=== PATIENT | male | born 2000 | race Caucasian/White ===

== ENCOUNTER → 2018-07-16 09:44 | Outpatient (CLI) | payer OTHER, SELFPAY ==
[2018-07-16 09:36] VITALS: BMI 27.8
--- NOTE | 2018-07-16 09:49 | RAD_ITS ---
STUDY: X-RAY - RIGHT FOOT CLINICAL: Male, 17 years old. Burn. TECHNIQUE: 3 view(s) of the foot. COMPARISON: None. FINDINGS: Normal talus, calcaneus, and tarsal bones. Normal visualized subtalar, talonavicular, calcaneocuboid, tarsal and tarsometatarsal articulations. Normal metatarsi. Normal metatarsophalangeal joint of the great toe. Normal tibial and fibular sesamoid bones. Normal interphalangeal joint of the great toe. Normal phalanges of the great toe. Normal second through fifth metatarsophalangeal joints. Normal interphalangeal joints and phalanges of the lesser toes. The soft tissue structures are unremarkable. There is no demonstrated fracture. RAD/Foot min 3 Views IMPRESSION: Normal x-ray examination of the foot. Electronically Signed: Nash Goodrich MD at 10:58 EST , Service support ,
== END ==
PROVIDERS: Referring Provider Physician Assistant Surgical; Visit Provider Physician Assistant Surgical
DX: T25.221A Burn of second degree of right foot, initial encounter (principal)
CPT/HCPCS: 73630

== ENCOUNTER 2023-05-18 04:14 | Emergency (ER) | payer SELFPAY ==
[2023-05-18 04:15] VITALS: BP 167/101; PULSE 63; RESP 14; TEMP 36.6; O2SAT 99; BMI 26.5
--- NOTE | 2023-05-18 04:25 | CT_ITS ---
EXAM: CT ABDOMEN AND PELVIS WITHOUT INTRAVENOUS CONTRAST CLINICAL INDICATION: Kidney Stone TECHNIQUE: Helically acquired images were obtained of the abdomen and pelvis without intravenous contrast. This CT exam was performed using one or more of the following dose reduction techniques: automated exposure control, adjustment of the mA and/or kV according to patient size, and/or use of iterative reconstruction technique. RADIATION DOSE: CTDIvol = 7.58 mGy, DLP = 380.63 mGy-cm COMPARISON: No relevant prior studies available. FINDINGS: LOWER THORAX: Unremarkable. Lung bases are clear. No cardiomegaly. No significant pericardial effusion. ABDOMEN: LIVER: Unremarkable. Homogeneous. GALLBLADDER AND BILE DUCTS: Unremarkable. No calcified gallstones. No gallbladder distention or wall edema. No intra- or extrahepatic biliary ductal dilation. PANCREAS: Unremarkable. No focal cystic mass. SPLEEN: Unremarkable. Normal size without focal cystic or solid mass. ADRENALS: Unremarkable. No nodules. KIDNEYS AND URETERS: There is a 6 mm stone in the left UVJ causing moderate obstructive changes. Small nonobstructing stone in the lower pole of the left kidney. STOMACH AND BOWEL: Unremarkable. No stomach or bowel distention. No focal inflammatory change. PELVIS: APPENDIX: The appendix is normal. BLADDER: Unremarkable. REPRODUCTIVE: Unremarkable as visualized. No mass. ABDOMEN and PELVIS: INTRAPERITONEAL SPACE: Unremarkable. No ascites or other fluid collection. No free air. BONES/JOINTS: Unremarkable. No suspicious lytic or blastic abnormality. SOFT TISSUES: Unremarkable. No discrete abdominal or pelvic wall hernia. VASCULATURE: Unremarkable. Abdominal aorta is non-dilated. LYMPH NODES: Unremarkable. No enlarged lymph nodes. CT/Abdomen/Pelvis without Cont IMPRESSION: There is a 6 mm stone in the left UVJ causing moderate obstructive changes. Electronically Signed: Walter Treviño MD at 5:20 EDT ,
--- NOTE | 2023-05-18 04:26 | EX.ED.DYSGE1 ---
HPI History of Present Illness Chief Complaint: Complaint Narrative Narrative: Patient presents with 4-hour history of left flank pain and burning with urination. No fevers or chills no prior kidney stones. No right-sided abdominal pain minimal left-sided abdominal pain. PFSH PFSH Medical History no medical history Home Medications oxycodone-acetaminophen 5 mg-325 mg tablet (Percocet) 1 tab PO Q6H 3 days #12 tabs 05/18/23 [Rx Last Taken Unknown] oxycodone-acetaminophen 5 mg-325 mg tablet (Percocet) 1 tab PO Q6H PRN pain 3 days #12 tabs 05/18/23 [Rx Last Taken Unknown] Allergy/AdvReac Type Severity Reaction Status Date / Time No Known Allergies Allergy Verified 05/18/23 04:19 Surgical History no surgical history Social History (Updated 07/24/20 @ 17:24 by DANA Castanon) Smoking Status: Current every day smoker tobacco type: e-cigarettes ROS ROS ED ROS Narrative Past medical history: Reviewed Medications: Reviewed Social history: Noncontributory Review of systems: All systems negative except as indicated General: No fever Eyes: No visual changes ENT: No upper airway congestion, normal voice Neck: No neck pain Cardiovascular: No chest pain Respiratory: No shortness of breath or cough Gastrointestinal: CVA tenderness and some left lower abdominal pain Genitourinary: Burning with urination. No penile discharge no testicular pain Musculoskeletal: Denies myalgias no difficulty with ambulation Skin: No rash EXAM Physical Exam Narrative Exam Narrative: Physical exam General: Patient appears somewhat uncomfortable Head: Normocephalic, Atraumatic Eyes: Conjunctiva not pale ENT: Moist mucous membranes Neck: Supple, Nontender, No lymphadenopathy Cardiovascular: Regular rate, Regular rhythm Respiratory: No distress, CTA bilaterally Abdomen: Soft, minimal tenderness over the left lower quadrant. : Normal external genitalia circumcised and shaved, no testicular tenderness no penile discharge Back: Nontender, Normal Inspection. Left-sided CVA tenderness Extremities: Nontender, No edema Skin: Normal color, No rash Neurological: Alert, Normal Strength, Normal Sensation Psychological: Normal affect Const Vital Signs: 05/18/23 04:15 Temperature 97.9 F Temperature Source Temporal Pulse Rate 63 Respiratory Rate 14 Blood Pressure 167/101 H Blood Pressure Mean 123 Pulse Ox 99 Oxygen Delivery Method Room Air MDM MDM MDM Narrative Medical decision making narrative: Patient is given analgesia, improved. He is found to have a 6 mm distal kidney stone. This was seen by me on the CT as I interpreted it, it was confirmed by radiologist. Patient has hematuria but no infection. Because his pain is controlled and there is no infection I believe he can be discharged I do not believe he meets admission criteria. He will be referred to urology. If anything changes he is to return. I will give him analgesics in the ED. I will give him prescription for home. Lab Data Labs: Laboratory Results - last 24 hr 05/18/23 05/18/23 04:30 04:45 WBC 9.0 RBC 5.29 Hgb 15.4 Hct 45.6 MCV 86.2 MCH 29.1 MCHC 33.8 RDW Std Deviation 38.2 RDW Coeff of Lydia 12.0 Plt Count 218 MPV 10.7 Immature Gran % (Auto) 0.400 Neut % (Auto) 71.2 H Lymph % (Auto) 20.2 Ocean % (Auto) 6.5 Eos % (Auto) 1.3 Baso % (Auto) 0.4 Absolute Neuts (auto) 6.4 Absolute Lymphs (auto) 1.81 Nucleated RBC % 0 Sodium 136 Potassium 3.4 L Chloride 109 H Carbon Dioxide 25.0 Anion Gap 2 L BUN 24 H Creatinine 1.00 Estim Creat Clear Calc 121.32 Est GFR (MDRD) Af Amer 118 Est GFR (MDRD) Non-Af 98 BUN/Creatinine Ratio 24.1 H Glucose 116 H Calcium 8.8 Urine Color Yellow Urine Clarity Clear Urine pH 6.0 Ur Specific [place] 1.025 Urine Protein 100 H Urine Glucose (UA) Normal Urine Ketones Negative Urine Occult Blood 250 H Urine Nitrite Negative Urine Bilirubin Negative Urine Urobilinogen Normal Ur Leukocyte Esterase Negative Urine RBC 10-25 SEEN Urine WBC 0 SEEN Ur Squamous Epith Cells 0 SEEN Urine Bacteria 0 SEEN Urine Mucus 0 SEEN Radiography Diagnostic Testing: Clinical Impression(s) from Imaging Studies Abdomen/Pelvis CT 05/18/23 04:25 IMPRESSION: There is a 6 mm stone in the left UVJ causing moderate obstructive changes. Electronically Signed: Walter Treviño MD at 5:20 EDT , Discharge Plan Triage Chief Complaint: Complaint ED Provider: Aj Morgan Dx/Rx/DC Orders Clinical Impression: Kidney calculi Instructions: ED Kidney Stone w/ Colic Prescriptions: New oxycodone-acetaminophen [Percocet] 5-325 mg tablet 1 tab PO Q6H 3 Days Qty: 12 0RF oxycodone-acetaminophen [Percocet] 5-325 mg tablet 1 tab PO Q6H PRN (Reason: pain) 3 Days Qty: 12 0RF Primary Care Provider: Care Physician,No Primary Referrals: Cdaen Mart MD [Med Staff - Active Staff] - 1-2 Days if not improving NOT,DEFINED [Non-Staff] - Disposition Disposition: Home, Self Care
[2023-05-18] MEDS: Morphine 4 MG/ML Syringe IV (04:44)
[2023-05-18] MEDS: Ketorolac 15 MG/ML Vial IV (04:44)
[2023-05-18] MEDS: Ondansetron 4 MG/2 ML Vial IV (04:44)
[2023-05-18 04:45] LABS: Absolute Lymphocyte Count 1.81 X10^3/uL (0.83-4.51); Absolute Neutrophil Count 6.4 X10^3/uL (2.0-7.7); Basophil# 0.04 X10^3/uL; Basophil% 0.4 % (0-1); Eosinophil# 0.12 X10^3/uL; Eosinophils% 1.3 % (0-5); Hematocrit 45.6 % (40-54); Hemoglobin 15.4 g/dL (13.0-16.5); Lymphocyte # 1.81 X10^3/ul (0.83-4.51); Lymphocyte % 20.2 % (19-41); Mean Corp Hgb Conc 33.8 g/dL (32-36); Mean Corpuscular Hgb 29.1 pg (27.0-32.0); Mean Corpuscular Volume 86.2 fL (80-94); Mean Platelet Vol. 10.7 fl (6.2-12.0); Monocyte# 0.58 X10^3/uL; Monocyte% 6.5 % (0-10); NRBC Flagged by Analyzer 0 % (0-5); Neutrophil # 6.38 X10^3/uL (2.7-7.7); Neutrophil % 71.2 % (47-70); Platelet Count 218 K/mm3 (150-450); RBC Distribution Width SD 38.2 fl (35.1-43.9); Red Blood Count 5.29 M/mm3 (4.6-6.2)
[2023-05-18 04:52] LABS: Bacteria 0 SEEN /hpf (None Seen); Mucous, Urine 0 SEEN /hpf (<or=2+); Squamous Epithelial Cells - UA 0 SEEN /hpf (0-5); White Blood Cells 0 SEEN /hpf (0-5)
[2023-05-18 05:01] LABS: Anion Gap 2 (5-15); BUN 24 mg/dL (7-18); BUN/Creat Ratio 24.1 RATIO (10-20); Calcium,Total 8.8 mg/dL (8.5-10.1); Chloride 109 mmol/L (98-107); EST Glomerular Filtration Rate 98 mL/min (>60); Est Glom Filt Rate - Afr Amer 118 mL/min (>60); Estimated Creatinine Clearance 121.32 ml/min; Glucose 116 mg/dL (74-106); Potassium 3.4 mmol/L (3.5-5.1); Sodium Level 136 mmol/L (136-145)
[2023-05-18 05:02] LABS: Color, Urine Yellow (Yellow); Glucose, Dipstick Normal (Normal); Ketone-Dipstick Negative (Negative); Leukocyte Esterase-Dipstick Negative /ul (Negative); Nitrite-Dipstick Negative (Negative); Occult Blood-Urine 250 /ul (Negative); Protein-Dipstick 100 mg/dl (Negative); Specific Gravity, Urine 1.025 (1.002-1.030); Urine Bilirubin Dipstick Negative (Negative); Urine Clarity Clear (Clear); Urine Urobilinogen Normal (Normal)
[2023-05-18 05:19] LABS: Red Blood Cells-Urine 10-25 SEEN /hpf (0-5)
== END 2023-05-18 06:00 | disposition home or self-care (01) ==
PROVIDERS: Emergency Provider Emergency Medicine; Visit Provider Emergency Medicine
DX: N20.0 Calculus of kidney (principal); F17.290 Nicotine dependence, other tobacco product, uncomplicated
CPT/HCPCS: 74176; 80048; 81001; 85025; 96374; 96375; 99283; J7030; A4216; J2405

== ENCOUNTER 2025-04-08 13:37 | Emergency (ER) | payer BC, SELFPAY ==
[2025-04-08 13:39] VITALS: BP 141/103; PULSE 109; RESP 18; TEMP 36.8; O2SAT 99; BMI 32.3
--- NOTE | 2025-04-08 14:29 | EX.ED.UPPERE ---
HPI History of Present Illness HPI Narrative: Patient presents with laceration to his left long finger that occurred today. Patient states he was loading firewood and got his finger caught between 2 logs of wood. Patient is unsure if it was the direct trauma or when he pulled his finger out from between the 2 logs that caused a laceration. Patient describes the pain as burning. Patient admits to some tingling into his finger. Patient states nothing makes his symptoms worse and nothing makes them better. Patient is unsure of his last tetanus. Chief Complaint: Trauma Informant: patient Occured/Mechanism Mechanism/Context: Yes blunt trauma and Yes direct blow Onset/Context/Timing Onset: Today Context: Sudden Onset Timing: Continuous Quality of Pain: Burning Location: Left long finger Worsened by: Nothing Relieved by: Nothing Associated Symptoms Associated Symptoms: Positive for Parasthesia; Negative for Weakness or Loss of Funtion Narrative Tetanus Immunization: Unknown PFSH PFSH Medical History no medical history no medical history Home Medications ?Medication ?Instructions ?Recorded ?Last Taken ?Type oxycodone-acetaminophen 5 mg-325 1 tab PO Q6H 3 days #12 tabs 05/18/23 Unknown Rx mg tablet (Percocet) oxycodone-acetaminophen 5 mg-325 1 tab PO Q6H PRN pain 3 days #12 05/18/23 Unknown Rx mg tablet (Percocet) tabs cephalexin 500 mg capsule 500 mg PO Q6 #40 CAPSULES 04/08/25 Unknown Rx Allergy/AdvReac Type Severity Reaction Status Date / Time No Known Allergies Allergy Verified 04/08/25 13:39 Surgical History no surgical history no surgical history Social History housing: house Smoking Status: Current every day smoker tobacco type: e-cigarettes ROS ROS ED Constitutional Constitutional ED: Denies chills or fever(s) Eyes Eyes: Denies blurry vision or change in vision ENT ENT ED: Denies rhinorrhea or sore throat Cardiovascular Cardiovascular: Denies chest pain or palpitations Respiratory/Chest Respiratory/Chest: Denies cough or dyspnea Gastrointestinal Gastrointestinal: Denies nausea or vomiting Genitourinary Genitourinary ED: Denies dysuria or hematuria Musculoskeletal Musculoskeletal: Denies back pain or neck pain Integumentary Denies abscess or rash Neurologic Neurologic: Denies headache(s) or weakness Allergic/Immunologic Allergic/Immunologic ED: Denies mouth swelling or urticaria EXAM Physical Exam Const Vital Signs: 04/08/25 13:39 04/08/25 13:46 Temperature 98.2 F Temperature Source Temporal Pulse Rate 109 H Respiratory Rate 18 Respiratory Effort Normal Non-Labored Respiratory Depth Normal Respiratory Pattern Normal Blood Pressure 141/103 H Blood Pressure Mean 115 Pulse Ox 99 Oxygen Delivery Method Room Air Positive well nourished and well developed Constitutional Narrative: BMI is 32.4. General Appearance ED: well developed and NAD HEENT Reports moist mucous membranes normocephalic and atraumatic Neck full ROM and supple Neuro oriented x3, CN's II-XII intact bilaterally, moves all extremities, no focal motor deficits and no sensory deficits noted Sensorium / Orientation: alert Motor Exam: strength 5/5 throughout Psych mental status grossly normal Skin Skin Narrative: There is a 2.5 cm full-thickness linear laceration over the volar aspect of the proximal phalanx of the left long finger. There is moderate gapping of the wound margins. There are no foreign bodies noted. There is mild bleeding. Strength is 5/5 in flexion extension of the MP, PIP, and DIP joints. Sensation was intact to light touch in all digits. Capillary refill was less than 2 seconds in all digits. MDM MDM MDM Narrative Medical decision making narrative: Differential diagnosis includes fracture, contusion, foreign body, and sprain. X-rays of the left middle finger will be obtained to assess for fracture and foreign body. Radiography Diagnostic Testing: X-rays of the left long finger were obtained. There are 3 views. On my independent interpretation, there is no acute fracture. There is no radiopaque foreign body at the site of the laceration. Radiologist also interpreted the x-ray and noted a punctate calcific density beneath the lateral aspect of the third nailbed. Treatment and Re-Evaluation Narrative: The wound was cleaned and irrigated with copious amounts of normal saline. The wound was anesthetized with 1% plain lidocaine via digital block. The wound was closed with 4 simple interrupted #4-0 nylon sutures under sterile technique. Patient tolerated the procedure well. Bacitracin dressing was applied. Patient was given a dose of Keflex here. Patient was given a prescription for Keflex. Patient was instructed to follow-up with his primary care physician in 5 to 7 days. Patient understood and was agreeable with the plan. All questions were answered. Discharge Plan Triage Chief Complaint: Trauma ED Provider: Maynor Woodward Dx/Rx/DC Orders Clinical Impression: Laceration of left middle finger w/o foreign body w/o damage to nail, Elevated blood pressure reading without diagnosis of hypertension Instructions: ED Hand Laceration- All Closures Prescriptions: New cephalexin 500 mg capsule 500 mg PO Q6 Qty: 40 0RF No Action oxycodone-acetaminophen [Percocet] 5-325 mg tablet 1 tab PO Q6H 3 Days Qty: 12 0RF oxycodone-acetaminophen [Percocet] 5-325 mg tablet 1 tab PO Q6H PRN (Reason: pain) 3 Days Qty: 12 0RF Primary Care Provider: Zhanna Gastelum Referrals: Zhanna Gastelum DO [Primary Care Provider, Medical] - 7 Days for suture removal Care Physician,No Primary [Non-Staff, Medical] Print Language: Slovak Disposition Disposition: Home, Self Care
--- NOTE | 2025-04-08 14:40 | RAD_ITS ---
PROCEDURE: FINGER(S) MIN 2 VIEWS 04/08/2025 REASON FOR EXAM: INJURY/PAIN TECHNIQUE: Procedure Code: RADFIN Modality: DX Procedure: FINGER(S) MIN 2 VIEWS Laterality: Left 3rd finger COMPARISON: None FINDINGS: Osseous: No acute fracture or malalignment of the left 3rd finger is seen. No bone lesion or periosteal reaction. Soft tissue: Soft tissue injury is not well assessed by this technique. A punctate calcific density is seen beneath the lateral aspect of the 3rd nailbed, likely a superficial foreign body or dystrophic calcification. Clinical correlation is advised. RAD/Finger(s) Min 2 Views IMPRESSION: No radiographic evidence of an acute osseous injury to the left 3rd finger. - Other findings discussed above. Reading Location: [id number]
--- OUTSIDE RECORDS SUMMARY | 2025-04-08 14:47 | XMS RPT_ITS | CCD ---
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 Q6H 3 days #12 tabs 05/18/23 [Rx Last Taken Unknown] oxycodone-acetaminophen 5 mg-325 mg tablet (Percocet) 1 tab PO Q6H PRN pain 3 days #12 tabs 05/18/23 [Rx Last Taken Unknown] Allergy/AdvReac Type Severity Reaction Status Date / Time No Known Allergies Allergy Verified 05/18/23 04:19 Surgical History no surgical history Social History (Updated 07/24/20 @ 17:24 by DANA Castanon) Smoking Status: Current every day smoker tobacco type: e-cigarettes ROS ROS ED ROS Narrative Past medical history: Reviewed Medications: Reviewed Social history: Noncontributory Review of systems: All systems negative except as indicated General: No fever Eyes: No visual changes ENT: No upper airway congestion, normal voice Neck: No neck pain Cardiovascular: No chest pain Respiratory: No shortness of breath or cough Gastrointestinal: CVA tenderness and some left lower abdominal pain Genitourinary: Burning with urination. No penile discharge no testicular pain Musculoskeletal: Denies myalgias no difficulty with ambulation Skin: No rash EXAM Physical Exam Narrative Exam Narrative: Physical exam General: Patient appears somewhat uncomfortable Head: Normocephalic, Atraumatic Eyes: Conjunctiva not pale ENT: Moist mucous membranes Neck: Supple, Nontender, No lymphadenopathy Cardiovascular: Regular rate, Regular rhythm Respiratory: No distress, CTA bilaterally Abdomen: Soft, minimal tenderness over the left lower quadrant. : Normal external genitalia circumcised and shaved, no testicular tenderness no penile discharge Back: Nontender, Normal Inspection. Left-sided CVA tenderness Extremities: Nontender, No edema Skin: Normal color, No rash Neurological: Alert, Normal Strength, Normal Sensation Psychological: Normal affect Const Vital Signs: 05/18/23 04:15 Temperature 97.9 F Temperature Source Temporal Pulse Rate 63 Respiratory Rate 14 Blood Pressure 167/101 H Blood Pressure Mean 123 Pulse Ox 99 Oxygen Delivery Method Room Air MDM MDM MDM Narrative Medical decision making narrative: Patient is given analgesia, improved. He is found to have a 6 mm distal kidney stone. This was seen by me on the CT as I interpreted it, it was confirmed by radiologist. Patient has hematuria but no infection. Because his pain is controlled and there is no infection I believe he can be discharged I do not believe he meets admission criteria. He will be referred to urology. If anything changes he is to return. I will give him analgesics in the ED. I willgive him prescription for home. Lab Data Labs: Laboratory Results - last 24 hr 05/18/23 05/18/23 04:30 04:45 WBC 9.0 RBC 5.29 Hgb 15.4 Hct 45.6 MCV 86.2 MCH 29.1 MCHC 33.8 RDW Std Deviation 38.2 RDW Coeff of Lydia 12.0 Plt Count 218 MPV 10.7 Immature Gran % (Auto) 0.400 Neut % (Auto) 71.2 H Lymph % (Auto) 20.2 [place] % (Auto) 6.5 Eos % (Auto) 1.3 Baso % (Auto) 0.4 Absolute Neuts (auto) 6.4 Absolute Lymphs (auto) 1.81 Nucleated RBC % 0 Sodium 136 Potassium 3.4 L Chloride 109 H Carbon Dioxide 25.0 Anion Gap 2 L BUN 24 H Creatinine 1.00 Estim Creat Clear Calc 121.32 Est GFR (MDRD) Af Amer 118 Est GFR (MDRD) Non-Af 98 BUN/Creatinine Ratio 24.1 H Glucose 116 H Calcium 8.8 Urine Color Yellow Urine Clarity Clear Urine pH 6.0 Ur Specific [place] 1.025 Urine Protein 100 H Urine Glucose (UA) Normal Urine Ketones Negative Urine Occult Blood 250 H Urine Nitrite Negative Urine Bilirubin Negative Urine Urobilinogen Normal Ur Leukocyte Esterase Negative Urine RBC 10-25 SEEN Urine WBC 0 SEEN Ur Squamous Epith Cells 0 SEEN Urine Bacteria 0 SEEN Urine Mucus 0 SEEN Radiography Diagnostic Testing: Clinical Impression(s) from Imaging Studies Abdomen/Pelvis CT 05/18/23 04:25 IMPRESSION: There is a 6 mm stone in the left UVJ causing moderate obstructive changes. Electronically Signed: Walter Treviño MD at 5:20 EDT , Discharge Plan Triage Chief Complaint: Complaint ED Provider: Aj Morgan Dx/Rx/DC Orders Clinical Impression: Kidney calculi Instructions: ED Kidney Stone w/ Colic Prescriptions: New oxycodone-acetaminophen [Percocet] 5-325 mg tablet 1 tab PO Q6H 3 Days Qty: 12 0RF oxycodone-acetaminophen [Percocet] 5-325 mg tablet 1 tab PO Q6H PRN (Reason: pain) 3 Days Qty: 12 0RF Primary Care Provider: Care Physician,No Primary Referrals: Caden Mart MD [Med Staff - Active Staff] - 1-2 Days if not improving NOT,DEFINED [Non-Staff] - Disposition Disposition: Home, Self Care What to do if you have Problems For any increased pain, shortness of breath, bleeding, nausea or vomiting, chestpain, or any unexpected problems, contact your Primary Care Provider. Call [facility] ([phone]) or report to the closest Emergency Room. Call 911 if necessary. 05/18/23 0542 <Electronically signed by Aj Morgan MD> Cosigner Signature (if applicable): CC: No Primary Care Physician ~ Signed [facility] Work Phone: Evaluation note Note Date & Type Note Facility Evaluation note No assessment information availa ble [facility] Work Phone: Summary Purpose Family History No Family History Records FoundNo Family History Records FoundNo Family History Records Found Advance Directives No Advanced Directives Records Found Advance Directive Response Recorded Date/ Time Living Will No May 18 4:18am Power of [employer] No May 18, 2023 4:18am Chief Complaint and Reason for Visit Chief Complaint urinary complaints Additional Source Comments (unrecognized sect ion and content) No Status Records FoundNo Status Records FoundNo Status Records Found INFORMATION SOURCE (unrecogn ized section and content) DATE CREATED AUTHOR 01/11/2023 [facility] DATE CREATED AUTHOR AUTHOR'S ORGANIZ ATION 05/18/2023 [facility] DATE CREATED AUTHOR AUTHOR'S ORGANIZ ATION 09/06/2023 [facility] Care Teams (unrecognized sec tion and content) Team Status: Active Member Role Status Dates No Primary Care Physician Primary Care Provider Active Team Status: Inactive Member Role Status Dates Dr. Aj Morgan MD Emergency Provider Active No Primary Care Physician Primary Care Provider Active Goals (unrecognized section and content) Goals may be documented in a n alternate section FOR RECORDS PERTAINING TO PATIENTS WHO ARE OR HAVE BEEN ENROLLED IN A CHEMICAL DEPENDENCY/SUBSTANCEABUSE PROGRAM, SOME INFORMATION MAY BE OMITTED. This clinical summary was aggregated from multiple sources. Caution should be exercised in using it in the provision of clinical care. This summary normalizes information from multiple sources, and as a consequence, information in this document may materially change the coding, format and clinical context of patient data. In addition, data may be omitted in some cases. CLINICAL DECISIONS SHOULD BE BASED ON THE PRIMARY CLINICAL RECORDS. [facility] provides no warranty or guarantee of the accuracy or completeness of information in this document.
[2025-04-08] MEDS: Lidocaine 1% (20 ml mdv) 20 ML Vial INFILT (14:53)
[2025-04-08 15:38] VITALS: BP 128/80; PULSE 80; O2SAT 100
[2025-04-08 17:00] VITALS: BP 119/80; PULSE 70; RESP 16; O2SAT 100
[2025-04-08 17:01] VITALS: BP 128/80; PULSE 80; RESP 18; TEMP 36.8; O2SAT 100
== END 2025-04-08 17:02 | disposition home or self-care (01) ==
PROVIDERS: Emergency Provider Emergency Medicine; PCP Family Medicine; Visit Provider Emergency Medicine
DX: S61.213A Laceration without foreign body of left middle finger without damage to nail, initial encounter (principal); R03.0 Elevated blood-pressure reading, without diagnosis of hypertension; W23.0XXA Caught, crushed, jammed, or pinched between moving objects, initial encounter; F17.290 Nicotine dependence, other tobacco product, uncomplicated
CPT/HCPCS: 12001; 73140; 90715; 99283